=== PATIENT | male | born 1960 | race Caucasian/White ===

== ENCOUNTER → 2017-11-14 | Outpatient (CLI) | payer OTHER ==
[~2017-11-14] MED LIST: ALL300 PO; AMOX875T PO; NAPR1TAB9 PO
[2017-11-14 09:47] LABS: ALBUMIN 3.9 gm/dl (3.4-5.0); ALT/SGPT 44 U/L (12-78); AST/SGOT 27 U/L (15-37); BLOOD UREA NITROGEN 20 mg/dl (7-18); CALCIUM 8.7 mg/dl (8.5-10.1); CARBON DIOXIDE 24 mmol/L (21-32); CHOLESTEROL 290 mg/dl (0-200); CREATININE 1.07 mg/dl (0.60-1.40); GLUCOSE 125 mg/dl (70-99); POTASSIUM 4.1 mmol/L (3.5-5.1); SODIUM 137 mmol/L (136-145)
[2017-11-14 09:50] LABS: ALKALINE PHOSPHATASE 83 U/L (45-117); LDL CHOLESTEROL CALCULATED 167 mg/dl; TOTAL PROTEIN 7.4 gm/dl (6.4-8.2)
[2017-11-14 10:05] LABS: HEMOGLOBIN A1C 6.2 % (4.5-5.6)
== END | disposition home or self-care (01) ==
LOC: C.LAB1850 07:05
PROVIDERS: ATTEND Neuromusculoskeletal Medicine & OMM
DX: R73.9 Hyperglycemia, unspecified (principal); E78.5 Hyperlipidemia, unspecified

== ENCOUNTER → 2018-03-06 | Outpatient (CLI) | payer OTHER ==
[2018-03-06 17:32] LABS: BASO % 0.3 %; BASO ABS # 0.02 K/uL (0-0.2); EOS % 1.8 %; EOS ABS # 0.11 K/uL (0-0.5); HEMOGLOBIN 13.8 g/dL (14.0-18.0); IG# 0.01 K/uL (0.00-0.02); LYMPH % 26.4 %; LYMPH ABS # 1.64 K/uL (1.2-3.4); MEAN CELL VOLUME 87.5 fL (80-100); MEAN CORPUSCULAR HEMOGLOBIN 30.2 pg (25-34); MEAN CORPUSCULAR HGB CONC 34.5 g/dl (32-36); MEAN PLATELET VOLUME 11.1 fL (7.4-10.4); MONO % 12.1 %; MONO ABS # 0.75 K/uL (0.11-0.59); NEUT % 59.2 %; NEUT ABS # 3.69 K/uL (1.4-6.5); PLATELET COUNT 196 K/uL (130-400); RED CELL DISTRIBUTION WIDTH CV 13.5 % (11.5-14.5); RED CELL DISTRIBUTION WIDTH SD 42.9 fL (36.4-46.3); WHITE BLOOD COUNT 6.22 K/uL (4.8-10.8)
== END | disposition home or self-care (01) ==
LOC: C.LABPVFM 16:18
PROVIDERS: ATTEND Nurse Practitioner
DX: M10.9 Gout, unspecified (principal)